=== PATIENT | female | born 1980 ===

== ENCOUNTER 2016-09-01 20:46 | Emergency (ER) | payer SELFPAY ==
[2016-09-01 20:58] VITALS: BP 114/64; PULSE 79; RESP 16; TEMP 98.2; O2SAT 99
--- NOTE | 2016-09-01 21:13 | ED PDOC ---
HPI: Female Pain Time Seen by Provider: 09/01/16 21:13 Chief Complaint (Nursing): Female Genitourinary Chief Complaint (Provider): vaginal pain History Per: Patient Additional Complaint(s): 35-year-old female with no past medical history presents with pelvic pain and vaginal pain that started 3 days ago. Patient denies any bleeding or discharge. She states she has mild dysuria no hematuria. Patient denies fever or chills, no nausea, vomiting, diarrhea or constipation. He has had similar pain like this in the past several months ago but it resolved on its own. Patient has not taken any medication for pain relief up to this point. She rates current pain as 5/10. Patient denies any concern for STD, denies any vaginal discharge. Past Medical History Reviewed: Historical Data, Nursing Documentation, Vital Signs Vital Signs: Last Vital Signs Temp 98.2 F 09/01/16 20:55 Pulse 79 09/01/16 20:55 Resp 16 09/01/16 20:55 BP 114/64 09/01/16 20:55 Pulse Ox 99 09/01/16 20:55 - Medical History PMH: No Chronic Diseases - Surgical History Surgical History: (x 4) - Family History Family History: States: No Known Family Hx - Living Arrangements Living Arrangements: With Family - Social History Current smoker - smoking cessation education provided: No Alcohol: None Drugs: Denies - Home Medications Home Medications: Ambulatory Orders Medication Instructions Recorded Ibuprofen [Motrin] 600 mg PO Q6 PRN #15 tab 09/02/16 - Allergies Allergies/Adverse Reactions: Allergies Allergy/AdvReac Type Severity Reaction Status Date / Time No Known Allergies Allergy Verified 12/31/14 17:47 Review of Systems ROS Statement: Except As Marked, All Systems Reviewed And Found Negative Constitutional: Negative for: Fever, Chills Gastrointestinal: Negative for: Nausea, Vomiting Genitourinary Female: Positive for: Dysuria, Pelvic Pain. Negative for: Frequency, Incontinence, Hematuria, Vaginal Discharge, Vaginal Bleeding, Rash Physical Exam - Reviewed Nursing Documentation Reviewed: Yes Vital Signs Reviewed: Yes - Physical Exam Appears: Positive for: Well, Non-toxic, No Acute Distress Head Exam: Negative for: ATRAUMATIC, NORMAL INSPECTION Skin: Positive for: Normal Color Eye Exam: Positive for: Normal appearance, EOMI, PERRL Cardiovascular/Chest: Positive for: Regular Rate, Rhythm Respiratory: Positive for: Normal Breath Sounds Gastrointestinal/Abdominal: Positive for: Normal Exam, Soft. Negative for: Tenderness Pelvic Exam: Positive for: External Exam Normal, Speculum Exam Normal, Bimanual Exam Normal, No Cerv. Motion Tender, No Masses, Tender Uterus. Negative for: Active Bleeding, Cervicitis, Discharge, Lesions, Mass, Tender W/Cervical Motion Back: Negative for: L CVA Tenderness, R CVA Tenderness Extremity: Positive for: Normal ROM. Negative for: Pedal Edema Neurologic/Psych: Positive for: Alert, Oriented - Laboratory Results Urine POC: Negative Urine dip results: Positive for: Blood (small). Negative for: Leukocyte Esterase, Nitrate, Ketones, Glucose, Bilirubin, Protein - ECG O2 Sat by Pulse Oximetry: 99 Pulse Ox Interpretation: Normal - Other Rad Transvaginal US X-Ray: Read By Radiologist X-Ray Interpretation: no acute finding Medical Decision Making Medical Decision Makin35 year old with pelvic pain. Plan: Urine dip and test Pelvic exam PO motrin for pain Genital culture CHL/GC culture Urine culture Transvaginal US Urine dip negative except for small blood, patient finished her menses yesterday. UA and culture sent. He should aware of all diagnostic testing results, all questions answered. Patient feels better after Motrin dose. She was referred to women[facility] clinic for follow-up. Disposition - Clinical Impression Clinical Impression: Pelvic pain - Patient ED Disposition Is Patient to be Admitted: No Counseled Patient/Family Regarding: Studies Performed, Diagnosis, Need For Followup, Rx Given - Disposition Referrals: [facility] [Outside] Disposition: Routine/Home Disposition Time: 00:04 Condition: STABLE Additional Instructions: Take rx meds as directed as needed for pain. Follow up with women's clinic. Prescriptions: Ibuprofen [Motrin] 600 mg PO Q6 PRN #15 tab PRN Reason: Pain, Moderate (4-7) Instructions: Pelvic Pain in Women (ED) Print Language: ANDORRAN Results - Lab Results Lab Results: 09/01/16 22:56 Urine Color Yellow Urine Clarity Slighty-cloudy Urine pH 6.0 Ur Specific [place] 1.024 Urine Protein Negative Urine Glucose (UA) Neg Urine Ketones Negative Urine Blood Small Urine Nitrate Negative Urine Bilirubin Negative Urine Urobilinogen 0.2-1.0 Ur Leukocyte Esterase Neg Urine RBC (Auto) < 1 Urine Microscopic WBC 1 Ur Squamous Epith Cells 3 Urine Bacteria Rare
--- NOTE | 2016-09-01 23:01 | US ---
EXAM: US Pelvis, Transvaginal CLINICAL HISTORY: 35 years old, female; Pain; Pelvic pain; Additional info: Pelvic pain, vaginal pain TECHNIQUE: Real-time transvaginal pelvic ultrasound (complete) with image documentation. Transvaginal imaging was used for better evaluation of the endometrium and adnexa. COMPARISON: No relevant prior studies available. FINDINGS: Uterus/cervix: Unremarkable in echogenicity and size measuring 9.3 x 5.2 x 6.9 cm. Normal endometrial stripe thickness measuring 6 mm. No myometrial mass. Subcentimeter Nabothian cysts are detected within the cervix, a nonspecific finding. Right ovary: Unremarkable in echogenicity and size measuring 3.1 x 2.1 x 2.3 cm. No mass. Normal blood flow. Left ovary: Unremarkable in echogenicity and size measuring 2.6 x 1.2 x 2.5 cm. No mass. Normal blood flow. Free fluid: No free fluid. Bladder: Empty bladder which cannot be evaluated with this probe. IMPRESSION: Unremarkable sonographic evaluation of the pelvis, as detailed above.
[2016-09-01 23:24] LABS: RBC URINE < 1 /hpf (0-3); URINE BACTERIA RARE (<OCC); URINE BILIRUBIN NEGATIVE (NEGATIVE); URINE BLOOD SMALL (NEGATIVE); URINE COLOR YELLOW (YELLOW); URINE GLUCOSE (UA) NEG (Normal); URINE KETONE NEGATIVE (NEGATIVE); URINE LEUKOCYTE ESTERASE NEG Leu/uL (Negative); URINE PROTEIN NEGATIVE (NEGATIVE); URINE UROBILINOGEN 0.2-1.0 mg/dL (0.2-1.0); WBC URINE 1 /hpf (0-5)
== END 2016-09-02 00:18 | disposition home or self-care (01) ==
LOC: H.ER 20:46
DX: R10.2 Pelvic and perineal pain (principal); R30.0 Dysuria

== ENCOUNTER 2018-05-19 09:01 | Emergency (ER) | payer OTHER ==
[2018-05-19 09:11] VITALS: BMI 37.3
--- NOTE | 2018-05-19 09:47 | ED PDOC ---
HPI: Headache Time Seen by Provider: 05/19/18 09:37 Chief Complaint (Nursing): Headache Chief Complaint (Provider): Headache with sinus pressure History Per: Patient, Family History/Exam Limitations: no limitations Onset/Duration Of Symptoms: Days (four days) Current Symptoms Are (Timing): Still Present Severity: Mild Pain Scale Rating Of: 4 Quality: Dull, Pressure, Squeezing Preceeding Symptoms: None Associated Symptoms: denies: Photophobia, Blurred Vision, Nausea, Vomiting Additional Complaint(s): Pt presents to the ED with three days of headache pain and facial pain present around her bilateral maxillary. Pt denies NVD but does indicate that she was febrile to an unknown degree on Sunday. Pt denies hx of migranes or trauma Past Medical History Reviewed: Historical Data, Nursing Documentation, Vital Signs Vital Signs: Last Vital Signs Temp 98.7 F 05/19/18 09:12 Pulse 86 05/19/18 09:12 Resp 20 05/19/18 09:12 BP 124/71 05/19/18 09:12 Pulse Ox 99 05/19/18 09:12 - Medical History PMH: Anemia Denies: Chronic Kidney Disease - Surgical History Surgical History: (x 4) - Family History Family History: States: Unknown Family Hx - Immunization History Hx Tetanus Toxoid Vaccination: No - Home Medications Home Medications: Ambulatory Orders Medication Instructions Recorded Ibuprofen [Motrin] 600 mg PO Q6 PRN #15 tab 09/02/16 Amoxicillin/Clavulanate [Augmentin 1 tab PO BID #20 tab 05/19/18 875 MG-125 MG] Iron 72 mg PO DAILY #100 tab 05/19/18 - Allergies Allergies/Adverse Reactions: Allergies Allergy/AdvReac Type Severity Reaction Status Date / Time No Known Allergies Allergy Verified 12/31/14 17:47 Review of Systems ROS Statement: Except As Marked, All Systems Reviewed And Found Negative Constitutional: Negative for: Fever, Chills, Sweats, Weakness, Malaise, Weight loss Eyes: Positive for: Pain, Other (facial pain) ENT: Negative for: Ear Pain Physical Exam - Reviewed Nursing Documentation Reviewed: Yes Vital Signs Reviewed: No - Physical Exam Appears: Positive for: Well, Non-toxic, No Acute Distress Head Exam: Positive for: ATRAUMATIC, NORMAL INSPECTION Skin: Positive for: Normal Color, Warm, Dry Eye Exam: Positive for: Normal appearance, EOMI, PERRL. Negative for: Nystagmus, Periorbital swelling, Periorbital tenderness ENT: Positive for: Pharynx Is (nonerythematous without tonsillar exudate or swelling), Sinus Pain/Drainage (bilaterally maxillary region pain and tenderness to palpation), Nasal Congestion. Negative for: Pharyngeal Erythema, Tonsillar Exudate, Tonsillar Swelling Neck: Positive for: Normal, Painless ROM, Supple. Negative for: Decreased ROM Cardiovascular/Chest: Positive for: Regular Rate, Rhythm, Chest Non Tender. Negative for: Edema, Gallop, Murmur, Bradycardia, Tachycardia Respiratory: Positive for: Normal Breath Sounds. Negative for: Decreased Breath Sounds, Accessory Muscle Use, Crackles, Rales, Rhonchi, Stridor, Wheezing, Respiratory Distress Pulses-Carotid (L): 2+ Pulses-Carotid (R): 2+ Pulses-Radial (L): 2+ Pulses-Radial (R): 2+ Neurologic/Psych: Positive for: Alert, parking ramp attendant II-XII, Oriented. Negative for: Motor/Sensory Deficits, Aphasia, Facial Droop - Laboratory Results Result Diagrams: 05/19/18 10:13 05/19/18 10:13 - ECG O2 Sat by Pulse Oximetry: 99 Medical Decision Making Medical Decision Making: CBC reveals heighted microcytic anemia of which the patient is seeing her PMD; Pt will be discharged with Fe vitamin/tablets Pt will be given course of augmentin for empiric sinus infection Disposition - Clinical Impression Clinical Impression: Headache, Sinus infection - Patient ED Disposition Is Patient to be Admitted: No Doctor Will See Patient In The: Office Counseled Patient/Family Regarding: Studies Performed, Diagnosis, Need For Foll owup - Disposition Disposition: Routine/Home Disposition Time: 12:02 Condition: STABLE Prescriptions: Amoxicillin/Clavulanate [Augmentin 875 MG-125 MG] 1 tab PO BID #20 tab Iron 72 mg PO DAILY #100 tab Instructions: Sinusitis in Adults, Sinusitis, Adult (DC), Headache, Adult Forms: [employer] (Albanian), [employer] (Norwegian) Print Language: YI
[2018-05-19 10:21] LABS: BASO # 0.2 K/uL (0.0-0.2); BASO % 1.8 % (0.0-2.0); EOS % 0.3 % (0.0-4.0); HEMOGLOBIN 7.1 g/dL (12.0-16.0); LYMPH # 2.2 K/uL (1.0-4.3); LYMPH % 25.9 % (20.0-40.0); MEAN CELL VOLUME 59.8 fl (81.0-99.0); MEAN CORPUSCULAR HEMOGLOBIN 17.2 pg (27.0-31.0); MEAN CORPUSCULAR HGB CONC 28.8 g/dL (33.0-37.0); MEAN PLATELET VOLUME 8.6 fl (7.2-11.7); MONO # 0.4 K/uL (0.0-0.8); MONO % 4.9 % (0.0-10.0); NEUT # 5.7 K/uL (1.8-7.0); NEUT % 67.1 % (50.0-75.0); NRBC % 0.2 % (0.0-0.0); RBC 4.13 Mil/uL (3.80-5.20); RED CELL DISTRIBUTION WIDTH 20.9 % (11.5-14.5); WHITE BLOOD COUNT 8.5 K/uL (4.8-10.8)
[2018-05-19 10:24] LABS: SQUAMOUS EPITHIAL 38 /hpf (0-5); URINE BACTERIA RARE (<OCC); URINE BILIRUBIN NEGATIVE (NEGATIVE); URINE BLOOD NEGATIVE (NEGATIVE); URINE CLARITY CLOUDY (Clear); URINE COLOR YELLOW (YELLOW); URINE GLUCOSE (UA) NEG (NEGATIVE); URINE LEUKOCYTE ESTERASE NEG Leu/uL (Negative); URINE PROTEIN NEGATIVE (NEGATIVE); URINE UROBILINOGEN 0.2-1.0 mg/dL (0.2-1.0)
[2018-05-19] MEDS: Sodium Chloride 0.9% 1,000 ML IV SCH ×2 (10:24→12:37)
[2018-05-19 10:31] LABS: ALB/GLOB RATIO 1.1 (1.0-2.1); ALBUMIN 4.4 g/dL (3.5-5.0); ALT/SGPT 29 U/L (9-52); AST/SGOT 26 U/L (14-36); BLOOD UREA NITROGEN 8 mg/dl (7-17); CALCIUM 8.6 mg/dL (8.4-10.2); GFR NON-AFRICAN AMERICAN > 60
[2018-05-19 12:39] VITALS: BP 122/50; PULSE 65; RESP 16; TEMP 98.8; O2SAT 100
== END 2018-05-19 12:39 | disposition home or self-care (01) ==
LOC: H.ER 09:01
DX: J32.9 Chronic sinusitis, unspecified (principal)
CPT/HCPCS: 80053; 81003; 85025; 87804; 96374; 99284; J1885; J7030